=== PATIENT | male | born 1965 | race Caucasian/White ===

== ENCOUNTER 2018-12-28 18:55 | Emergency (ER) | payer OTHER ==
[~2018-12-28] VITALS: Ht 165.1 cm; Wt 68.0 kg
[~2018-12-28 18:55] MED LIST: VICODIN
[2018-12-28 19:03] VITALS: BP 113/70
--- NOTE | 2018-12-28 19:06 | NUR ---
PT TRIAGED AND AMBULATED TO ER LOBBY.
--- NOTE | 2018-12-28 21:10 | NUR ---
PT AMBULATED TO BED 01.
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
--- NOTE | 2018-12-28 22:03 | NUR ---
Patient discharge instructions provided, patient verbilazed ID band removed. Patient advised to follow up with PMD. Rx of Augmentin given. Patient educated on indication of medication including possible reaction and side effects. Opportunity to ask questions provided and answered.
[2018-12-28 22:11] VITALS: BP 110/68
== END 2018-12-28 22:03 | disposition home or self-care (01) ==
LOC: MED 18:55
DX: J06.9 Acute upper respiratory infection, unspecified (principal); Z79.891 Long term (current) use of opiate analgesic
CPT/HCPCS: 99283

== ENCOUNTER 2019-04-09 00:21 | Emergency (ER) | payer OTHER ==
[~2019-04-09] VITALS: Ht 167.6 cm; Wt 66.2 kg
[2019-04-09 00:26] VITALS: BP 129/79
--- NOTE | 2019-04-09 00:30 | NUR ---
PT TAKEN TO BED 3
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
[2019-04-09] MEDS ORDERED: BACITRACIN OINT 500 UNITS/GM PKT TP ONE (00:50)
[2019-04-09] MEDS ORDERED: SULFAMETH/TRIMETH DS 800/160MG 1 TAB PO ONE (00:50)
[2019-04-09] MEDS ORDERED: IBUPROFEN 800 MG TAB PO ONE (00:50)
[2019-04-09] MEDS ORDERED: CEPHALEXIN 500 MG CAP PO ONE (00:50)
--- NOTE | 2019-04-09 01:05 | NUR ---
PT BILATERAL WOUNDS COVERED WITH NON ADHERENT DRESSINGS AND WRAPPED WITH BANDAIDS AFTER BACITRACIN APPLIED. PT STATED HE FELT RELIEF AFTER APPLICATION.
[2019-04-09 01:26] VITALS: BP 129/79
--- NOTE | 2019-04-09 01:27 | NUR ---
Patient discharged with v/s stable. Written and verbal after care instructions given and explained. Patient alert, oriented and verbalized understanding of instructions. Ambulatory with steady gait. All questions addressed prior to discharge. ID band removed. Patient advised to follow up with PMD. Rx of KEFELX, BACTRIM, MOTRIN given. Patient educated on indication of medication including possible reaction and side effects. Opportunity to ask questions provided and answered.
== END 2019-04-09 01:27 | disposition home or self-care (01) ==
LOC: MED 00:21
DX: S90.522A Blister (nonthermal), left ankle, initial encounter (principal); S90.521A Blister (nonthermal), right ankle, initial encounter; L02.413 Cutaneous abscess of right upper limb; F15.90 Other stimulant use, unspecified, uncomplicated; X58.XXXA Exposure to other specified factors, initial encounter; Y93.89 Activity, other specified; Y92.89 Other specified places as the place of occurrence of the external cause; Y99.8 Other external cause status
CPT/HCPCS: 99284

== ENCOUNTER 2019-06-15 12:12 | Emergency (ER) | payer OTHER ==
[~2019-06-15] VITALS: Ht 165.1 cm; Wt 68.0 kg
[2019-06-15 12:14] VITALS: BP 128/64
--- NOTE | 2019-06-15 12:21 | NUR ---
PT AMBULATED TO ER BED 12
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
[2019-06-15] MEDS ORDERED: CYCLOBENZAPRINE 10 MG TAB PO ONE (12:45)
[2019-06-15] MEDS ORDERED: IBUPROFEN 800 MG TAB PO ONE (12:45)
[2019-06-15 13:25] VITALS: BP 124/71
--- NOTE | 2019-06-15 13:25 | NUR ---
PT GIVEN SANDWICH, PER REQUEST FROM PT.
--- NOTE | 2019-06-15 13:25 | NUR ---
Patient discharged with v/s stable. Written and verbal after care instructions given and explained. Patient alert, oriented and verbalized understanding of instructions. Ambulatory with steady gait. All questions addressed prior to discharge. ID band removed. Patient advised to follow up with PMD. Rx of FLEXIRIL, IBUPROFEN given. Patient educated on indication of medication including possible reaction and side effects. Opportunity to ask questions provided and answered.
== END 2019-06-15 13:25 | disposition home or self-care (01) ==
LOC: MED 12:12
DX: S16.1XXA Strain of muscle, fascia and tendon at neck level, initial encounter (principal); M25.512 Pain in left shoulder; M19.90 Unspecified osteoarthritis, unspecified site; Z88.8 Allergy status to other drugs, medicaments and biological substances; V27.4XXA Motorcycle driver injured in collision with fixed or stationary object in traffic accident, initial encounter; Y92.410 Unspecified street and highway as the place of occurrence of the external cause; Y93.55 Activity, bike riding; Y99.8 Other external cause status
CPT/HCPCS: 72050; 73000; 99283